=== PATIENT | male | born 1945 | race Caucasian/White ===

== ENCOUNTER 2017-07-18 12:25 | Day surgery (SDC) | payer OTHER ==
[~2017-07-18] VITALS: Ht 177.8 cm; Wt 95.3 kg
[~2017-07-18 12:25] MED LIST: AMLODIPINE BESYL5 MG PO; ATORVASTATIN CA20 MG PO; BENAZEPRIL HCL20 MG PO; CALTRATE 600 +1 EAC1 PO; CENTRUM SILVER1 EAC3 PO; DAILY MULTIPLE1 EACH PO; DILTIAZEM 24HR180 MG PO; IPRATROPIUM BRO30 ML BOTH NARES; KEPPRA500 MG PO; LITE COAT ASPI325 M1 PO; LONITEN2.5 MG PO; MIDAMOR5 MG PO; NATURAL LUTEIN20 MG PO; OMEGA-31000 M1 PO; VITAMIN C1000 MG PO; VITAMIN D32000 UNI1 PO; VITAMIN E400 UNIT PO; ZINC GLUCONATE100 MG PO
[2017-07-18 12:56] LABS: HEMATOCRIT 41.2 % (38.0-50.0); MCH 29.1 PG (29.0-34.0); MCV 90.9 FL (86-99); MEAN PLAT.VOLUME 10.5 uM^3 (9.0-12.4); PLATELET COUNT 224 K/uL (156-360); RBC DIS.WIDTH-SD 46.8 % (39-53); RED BLOOD COUNT 4.53 M/uL (4.00-5.50); WHITE BLOOD COUNT 9.3 K/uL (4.1-10.2)
[2017-07-18 13:14] VITALS: BP 159/78
[2017-07-18 13:39] LABS: ALKALINE PHOSPHATASE 106 IU/L (3-129); ANION GAP 9 MEQ/L (2-14); CHLORIDE 107 MEQ/L (99-109); GFR ESTIMATE (CALCULATED) > 59 mL/min/; GLUCOSE 108 mg/dL (70-99); POTASSIUM 4.8 MEQ/L (3.7-5.4); SAMPLE HEMOLYSIS CHECK 0; SAMPLE ICTERIC CHECK 0; SAMPLE LIPEMIA CHECK 0; SODIUM 142 MEQ/L (136-147); TOTAL BILIRUBIN 0.6 MG/DL (0.0-1.0); UREA NITROGEN (BUN) 22 mg/dL (9-23)
[2017-07-18 16:25] VITALS: BP 166/76
[2017-07-18 17:03] VITALS: BP 160/70
== END 2017-07-18 17:13 | disposition home or self-care (01) ==
LOC: SDC 12:25
PROVIDERS: Ophthalmology
DX: T85.22XA Displacement of intraocular lens, initial encounter (principal); I10 Essential (primary) hypertension; G40.909 Epilepsy, unspecified, not intractable, without status epilepticus; Z88.0 Allergy status to penicillin; Z86.73 Personal history of transient ischemic attack (TIA), and cerebral infarction without residual deficits; Z79.899 Other long term (current) drug therapy; Z79.82 Long term (current) use of aspirin
CPT/HCPCS: 80053; 85027; J0690; J1100; J2795